=== PATIENT | male | born 1980 | race Caucasian/White ===

== ENCOUNTER 2016-09-20 08:00 | Emergency (ER) | payer MEDICAID ==
[~2016-09-20] VITALS: Ht 177.8 cm; Wt 93.4 kg
[~2016-09-20 08:00] MED LIST: ALPR1TAB2
[2016-09-20 08:17] VITALS: BP 135/93
== END 2016-09-20 08:58 | disposition home or self-care (01) ==
LOC: ER 08:03
DX: J20.9 Acute bronchitis, unspecified (principal); F17.200 Nicotine dependence, unspecified, uncomplicated
CPT/HCPCS: 71020

== ENCOUNTER 2016-11-02 20:53 | Emergency (ER) | payer MEDICAID ==
[~2016-11-02] VITALS: Ht 177.8 cm; Wt 96.6 kg
[2016-11-03 02:21] VITALS: BP 120/71
== END 2016-11-03 02:34 | disposition home or self-care (01) ==
LOC: ER 20:55
DX: K40.20 Bilateral inguinal hernia, without obstruction or gangrene, not specified as recurrent (principal); N41.0 Acute prostatitis; F17.210 Nicotine dependence, cigarettes, uncomplicated
CPT/HCPCS: 74176; 76870

== ENCOUNTER 2016-11-18 01:55 | Emergency (ER) | payer MEDICAID ==
[~2016-11-18] VITALS: Ht 177.8 cm; Wt 99.8 kg
[2016-11-18 01:59] VITALS: BP 133/82
[2016-11-18 02:24] LABS: Basophils # (auto) 0 uL; Basophils % (auto) 0.4 % (0.0-2.0); Eosinophils # (auto) 0.2 uL; Eosinophils % (auto) 1.5 % (0.0-7.0); Hematocrit 46.5 % (41.0-53.0); Lymphocytes # (auto) 2.4 uL; Lymphocytes % (auto) 19.4 % (10.0-50.0); Mean Corpuscular Hgb Conc. 32.2 g/dL (32.0-36.0); Mean Corpuscular Volume 83.9 fL (80.0-100.0); Mean Platelet Volume 7.6 fL (7.4-10.4); Monocytes # (auto) 1.2 uL; Monocytes % (auto) 9.8 % (0.0-12.0); Neutrophils # (auto) 8.7 uL; Neutrophils % (auto) 68.9 % (37.0-80.0); Platelet Count (auto) 417 10^3/uL (140-450); Red Cell Distribution Width 14.6 % (11.6-16.0); White Blood Cell 12.6 10^3/uL (4.4-10.8)
[2016-11-18 02:50] LABS: BUN/Creatinine Ratio 8.6; Potassium 3.9 mmol/L (3.5-5.1)
[2016-11-18 02:51] LABS: Calcium 8.6 mg/dL (8.5-10.1)
== END 2016-11-18 04:56 | disposition left against medical advice (07) ==
LOC: ER 01:57
DX: M79.89 Other specified soft tissue disorders (principal); Z53.21 Procedure and treatment not carried out due to patient leaving prior to being seen by health care provider
CPT/HCPCS: 36415; 80048; 84550; 85025; 85379

== ENCOUNTER 2016-11-19 17:50 | Emergency (ER) | payer MEDICAID ==
[~2016-11-19] VITALS: Ht 177.8 cm; Wt 97.1 kg
[2016-11-19 19:42] LABS: Basophils # (auto) 0 uL; Basophils % (auto) 0.3 % (0.0-2.0); Eosinophils # (auto) 0.1 uL; Hematocrit 43.8 % (41.0-53.0); Hemoglobin 14.1 g/dL (13.5-17.5); Lymphocytes # (auto) 1.7 uL; Lymphocytes % (auto) 21.2 % (10.0-50.0); Mean Corpuscular Hemoglobin 27.1 pg (28.0-32.0); Mean Corpuscular Hgb Conc. 32.1 g/dL (32.0-36.0); Mean Corpuscular Volume 84.4 fL (80.0-100.0); Mean Platelet Volume 8.1 fL (7.4-10.4); Monocytes % (auto) 12.6 % (0.0-12.0); Neutrophils # (auto) 5.2 uL; Neutrophils % (auto) 64.9 % (37.0-80.0); Platelet Count (auto) 369 10^3/uL (140-450); Red Cell Distribution Width 14.8 % (11.6-16.0); White Blood Cell 8.1 10^3/uL (4.4-10.8)
[2016-11-19 19:48] LABS: INR 0.95 (0.9-1.15); Prothrombin Time 10.4 sec (9.37-12.3)
[2016-11-19 20:22] LABS: Albumin 3.4 g/dL (3.4-5.0); BUN/Creatinine Ratio 11.8; Bilirubin, Total 0.5 mg/dL (0.2-1.0); Calcium 8.3 mg/dL (8.5-10.1); Total Protein 7.7 g/dL (6.4-8.2)
[2016-11-19 21:27] VITALS: BP 140/65
== END 2016-11-19 21:50 | disposition home or self-care (01) ==
LOC: ER 17:56
DX: L03.115 Cellulitis of right lower limb (principal); F17.210 Nicotine dependence, cigarettes, uncomplicated; Z79.899 Other long term (current) drug therapy
CPT/HCPCS: 36415; 80053; 85025; 85610; 85730; 93971

== ENCOUNTER 2016-11-22 16:37 | Emergency (ER) | payer MEDICAID ==
[~2016-11-22] VITALS: Ht 177.8 cm; Wt 97.5 kg
[2016-11-22 16:50] VITALS: BP 127/93
== END 2016-11-22 17:56 | disposition home or self-care (01) ==
LOC: ER 16:40
DX: R19.7 Diarrhea, unspecified (principal); L03.115 Cellulitis of right lower limb; F17.210 Nicotine dependence, cigarettes, uncomplicated

== ENCOUNTER 2016-12-17 23:41 | Emergency (ER) | payer MEDICAID ==
[~2016-12-17] VITALS: Ht 177.8 cm; Wt 97.5 kg
[2016-12-18 01:17] LABS: Basophils # (auto) 0 uL; Basophils % (auto) 0.6 % (0.0-2.0); CONDITION Y; Eosinophils # (auto) 0.2 uL; Eosinophils % (auto) 2.2 % (0.0-7.0); Hematocrit 44.3 % (41.0-53.0); Hemoglobin 14.5 g/dL (13.5-17.5); Mean Corpuscular Hemoglobin 27.1 pg (28.0-32.0); Mean Corpuscular Hgb Conc. 32.8 g/dL (32.0-36.0); Mean Corpuscular Volume 82.7 fL (80.0-100.0); Mean Platelet Volume 7.8 fL (7.4-10.4); Monocytes # (auto) 0.8 uL; Monocytes % (auto) 10.8 % (0.0-12.0); Neutrophils # (auto) 4.3 uL; Neutrophils % (auto) 59.4 % (37.0-80.0); Platelet Count (auto) 284 10^3/uL (140-450); White Blood Cell 7.3 10^3/uL (4.4-10.8)
[2016-12-18 01:55] LABS: Albumin 3.7 g/dL (3.4-5.0); BUN/Creatinine Ratio 12.2; Calcium 8.1 mg/dL (8.5-10.1)
[2016-12-18 01:58] LABS: Bilirubin, Total 0.2 mg/dL (0.2-1.0); Total Protein 7.6 g/dL (6.4-8.2)
[2016-12-18 02:01] LABS: Urine RBC None Seen /hpf (0 - 3)
[2016-12-18 02:51] LABS: Urine Bilirubin Negative (Negative); Urine Blood Negative /uL (Negative); Urine Color Yellow (Yellow); Urine Glucose Normal (Normal); Urine Ketone Negative (Negative); Urine Mucus FEW (None Seen); Urine Nitrite Negative (Negative); Urine Urobilinogen Normal (Negative); Urine pH 5.5 (5.0-8.0)
[2016-12-18] MEDS ORDERED: AMMONIA 0.33 ML INHALANT IN ONE (04:38)
[2016-12-18 08:01] VITALS: BP 136/82
== END 2016-12-18 08:24 | disposition home or self-care (01) ==
LOC: ER 23:41
DX: N45.1 Epididymitis (principal); N43.3 Hydrocele, unspecified; M54.42 Lumbago with sciatica, left side; G89.29 Other chronic pain; F17.200 Nicotine dependence, unspecified, uncomplicated; F15.10 Other stimulant abuse, uncomplicated; Z88.6 Allergy status to analgesic agent; Z88.8 Allergy status to other drugs, medicaments and biological substances
CPT/HCPCS: 36415; 76870; 80053; 80307; 81001; 85025; 93971; A4565

== ENCOUNTER 2017-03-16 22:21 | Emergency (ER) | payer MEDICAID ==
[~2017-03-16] VITALS: Ht 177.8 cm; Wt 95.3 kg
[2017-03-17 04:00] LABS: Basophils # (auto) 0.1 uL; Basophils % (auto) 1.3 % (0.0-2.0); Eosinophils # (auto) 0.2 uL; Eosinophils % (auto) 2.4 % (0.0-7.0); Hematocrit 49.3 % (41.0-53.0); Hemoglobin 15.9 g/dL (13.5-17.5); Lymphocytes # (auto) 1.5 uL; Lymphocytes % (auto) 21.6 % (10.0-50.0); Mean Corpuscular Hemoglobin 27.3 pg (28.0-32.0); Mean Corpuscular Hgb Conc. 32.2 g/dL (32.0-36.0); Mean Corpuscular Volume 84.8 fL (80.0-100.0); Mean Platelet Volume 7.6 fL (6.9-10.8); Monocytes # (auto) 0.9 uL; Monocytes % (auto) 13.3 % (0.0-12.0); Neutrophils # (auto) 4.4 uL; Neutrophils % (auto) 61.4 % (37.0-80.0); Nucleated Red Blood Cells % 0.1 %; Platelet Count (auto) 283 10^3/uL (140-450); Red Cell Distribution Width 15.5 % (11.8-14.3); White Blood Cell 7.1 10^3/uL (4.4-10.8)
[2017-03-17 04:21] LABS: Potassium 3.9 mmol/L (3.5-5.1)
[2017-03-17 04:26] LABS: BUN/Creatinine Ratio 8.5
[2017-03-17 04:31] LABS: Bilirubin, Total 0.7 mg/dL (0.2-1.0); Total Protein 8.4 g/dL (6.4-8.2)
[2017-03-17] MEDS ORDERED: KETOROLAC TROMETH 60MG/2ML VIAL IM ONE (07:30)
[2017-03-17 07:33] VITALS: BP 104/63
== END 2017-03-17 08:28 | disposition home or self-care (01) ==
LOC: ER 22:23
DX: K40.20 Bilateral inguinal hernia, without obstruction or gangrene, not specified as recurrent (principal); Z88.6 Allergy status to analgesic agent; Z88.8 Allergy status to other drugs, medicaments and biological substances
CPT/HCPCS: 36415; 74176; 76870; 80053; 85025; 96372; 99285; J1885

== ENCOUNTER 2017-03-24 01:39 | Emergency (ER) | payer SELFPAY ==
[~2017-03-24] VITALS: Ht 177.8 cm; Wt 97.5 kg
[2017-03-24 02:01] VITALS: BP 133/84
== END 2017-03-24 02:28 | disposition home or self-care (01) ==
LOC: ER 01:44
DX: R10.30 Lower abdominal pain, unspecified (principal); N50.82 Scrotal pain; G89.4 Chronic pain syndrome; Z88.6 Allergy status to analgesic agent; Z88.8 Allergy status to other drugs, medicaments and biological substances

== ENCOUNTER 2017-05-27 16:42 | Emergency (ER) | payer MEDICAID ==
[~2017-05-27] VITALS: Ht 177.8 cm; Wt 93.0 kg
[2017-05-27 18:03] LABS: Urine Bilirubin Negative (Negative); Urine Blood 1+ /uL (Negative); Urine Color Yellow (Yellow); Urine Glucose Normal (Normal); Urine Ketone Negative (Negative); Urine Mucus FEW (None Seen); Urine Nitrite Negative (Negative); Urine RBC 13 /hpf (0 - 3); Urine Urobilinogen Normal (Negative); Urine pH 5.5 (5.0-8.0)
[2017-05-27 23:24] LABS: Basophils # (auto) 0.1 uL; Eosinophils # (auto) 0.1 uL; Eosinophils % (auto) 1.4 % (0.0-7.0); Hematocrit 46.3 % (41.0-53.0); Hemoglobin 15.1 g/dL (13.5-17.5); Lymphocytes % (auto) 28.6 % (10.0-50.0); Mean Corpuscular Hemoglobin 27.6 pg (28.0-32.0); Mean Corpuscular Hgb Conc. 32.7 g/dL (32.0-36.0); Mean Corpuscular Volume 84.3 fL (80.0-100.0); Mean Platelet Volume 7.2 fL (6.9-10.8); Monocytes # (auto) 0.8 uL; Monocytes % (auto) 11.2 % (0.0-12.0); Neutrophils # (auto) 4.1 uL; Neutrophils % (auto) 57.8 % (37.0-80.0); Nucleated Red Blood Cells % 0.1 %; Platelet Count (auto) 303 10^3/uL (140-450); Red Cell Distribution Width 14.2 % (11.8-14.3); White Blood Cell 7.2 10^3/uL (4.4-10.8)
[2017-05-27 23:41] LABS: BUN/Creatinine Ratio 9.9; Calcium 8.9 mg/dL (8.5-10.1); Potassium 3.3 mmol/L (3.5-5.1)
[2017-05-27 23:43] LABS: Bilirubin, Total 0.4 mg/dL (0.2-1.0); Total Protein 8.4 g/dL (6.4-8.2)
[2017-05-28] MEDS ORDERED: SODIUM CHLORIDE 0.9% 1,000 ML IV ONE (03:00)
[2017-05-28] MEDS ORDERED: KETOROLAC TROMETH 30 MG/ML 1ML VIAL IV ONE (03:00)
[2017-05-28 06:00] VITALS: BP 122/67
== END 2017-05-28 06:07 | disposition home or self-care (01) ==
LOC: ER 16:42
DX: K40.20 Bilateral inguinal hernia, without obstruction or gangrene, not specified as recurrent (principal); N43.3 Hydrocele, unspecified; Z88.6 Allergy status to analgesic agent; Z88.8 Allergy status to other drugs, medicaments and biological substances
CPT/HCPCS: 36415; 74176; 76870; 80053; 81001; 85025; 96361; 96374; 99285; J1885; J7030

== ENCOUNTER 2017-06-06 15:27 | Emergency (ER) | payer MEDICAID ==
[~2017-06-06] VITALS: Ht 177.8 cm; Wt 93.0 kg
[2017-06-06 16:10] VITALS: BP 136/79
[2017-06-06 16:19] LABS: Urine Bilirubin Negative (Negative); Urine Blood 2+ /uL (Negative); Urine Color Yellow (Yellow); Urine Glucose Normal (Normal); Urine Ketone Negative (Negative); Urine Mucus FEW (None Seen); Urine Nitrite Negative (Negative); Urine RBC 63 /hpf (0 - 3); Urine Urobilinogen Normal (Negative); Urine pH 5.5 (5.0-8.0)
[2017-06-06] MEDS ORDERED: KETOROLAC TROMETH 60MG/2ML VIAL IM ONE (16:30)
== END 2017-06-06 16:52 | disposition home or self-care (01) ==
LOC: ER 15:33
DX: M54.32 Sciatica, left side (principal); Z87.442 Personal history of urinary calculi; Z88.1 Allergy status to other antibiotic agents; Z88.5 Allergy status to narcotic agent; Z88.6 Allergy status to analgesic agent
CPT/HCPCS: 81001; 96372; 99283; J1885

== ENCOUNTER 2017-07-11 19:03 | Emergency (ER) | payer MEDICAID ==
[~2017-07-11] VITALS: Ht 177.8 cm; Wt 93.0 kg
[2017-07-11] MEDS ORDERED: ONDANSETRON HCL 4 MG/2 ML VIAL IV ONE (19:30)
[2017-07-11] MEDS ORDERED: SODIUM CHLORIDE 0.9% 1,000 ML IV ONE (19:30)
[2017-07-11] MEDS ORDERED: MORPHINE SULFATE 10 MG/ML INJ 1ML SDV IV ONE ×2 (19:30→21:15)
[2017-07-11 20:43] LABS: Basophils # (auto) 0.1 uL; Basophils % (auto) 0.4 % (0.0-2.0); Eosinophils # (auto) 0 uL; Eosinophils % (auto) 0.3 % (0.0-7.0); Hematocrit 46.3 % (41.0-53.0); Hemoglobin 15.3 g/dL (13.5-17.5); Lymphocytes # (auto) 1.2 uL; Lymphocytes % (auto) 7.5 % (10.0-50.0); Mean Corpuscular Hemoglobin 28.1 pg (28.0-32.0); Mean Corpuscular Volume 85.1 fL (80.0-100.0); Monocytes % (auto) 6.6 % (0.0-12.0); Neutrophils # (auto) 13.4 uL; Neutrophils % (auto) 85.2 % (37.0-80.0); Nucleated Red Blood Cells % 0.1 %; Platelet Count (auto) 356 10^3/uL (140-450); Red Blood Cells 5.44 10^6/uL (4.5-5.90); Red Cell Distribution Width 14.2 % (11.8-14.3); White Blood Cell 15.7 10^3/uL (4.4-10.8)
[2017-07-11 21:10] LABS: Albumin 4.3 g/dL (3.4-5.0); BUN/Creatinine Ratio 10.8; Bilirubin, Total 0.5 mg/dL (0.2-1.0); Calcium 9.6 mg/dL (8.5-10.1); Potassium 3.6 mmol/L (3.5-5.1); Total Protein 8.9 g/dL (6.4-8.2)
[2017-07-11 21:42] LABS: Urine Bacteria NONE SEEN /hpf (None Seen); Urine Blood 2+ /uL (Negative); Urine Mucus FEW (None Seen); Urine WBC 3 /hpf (0 - 3)
[2017-07-11] MEDS ORDERED: TAMSULOSIN HYDROCHLORIDE 0.4 MG CAP PO ONE (21:45)
[2017-07-11 22:41] VITALS: BP 141/90
== END 2017-07-12 00:37 | disposition home or self-care (01) ==
LOC: ER 19:03
DX: N20.1 Calculus of ureter (principal); F20.9 Schizophrenia, unspecified; Z87.442 Personal history of urinary calculi
CPT/HCPCS: 36415; 74176; 80053; 81001; 85025; 96361; 96374; 99285; J2270

== ENCOUNTER 2017-07-29 17:06 | Emergency (ER) | payer MEDICAID ==
[~2017-07-29] VITALS: Ht 177.8 cm; Wt 89.4 kg
[2017-07-29] MEDS ORDERED: methylPREDNISolone SOD SUCC 125 MG/2 ML VL IM ONE (21:30)
[2017-07-29] MEDS ORDERED: KETOROLAC TROMETH 60MG/2ML VIAL IM ONE (21:30)
[2017-07-29 21:39] VITALS: BP 127/85
[2017-07-29] MEDS ORDERED: ACETAMINOPHEN/CODEINE#3 (300/30mg) TAB PO ONE (22:45)
[2017-07-29] MEDS ORDERED: HYDROcodone-ACET 5/325MG TAB PO ONE (23:30)
== END 2017-07-29 23:43 | disposition home or self-care (01) ==
LOC: ER 17:06
DX: G57.11 Meralgia paresthetica, right lower limb (principal)
CPT/HCPCS: 96372; 99284; J1885; J2930

== ENCOUNTER 2018-09-10 21:40 | Emergency (ER) | payer MEDICAID ==
[~2018-09-10] VITALS: Ht 177.8 cm; Wt 90.7 kg
[2018-09-10 23:46] LABS: Basophils # (auto) 0.1 uL; Eosinophils # (auto) 0.1 uL; Eosinophils % (auto) 0.9 % (0.0-7.0); Hematocrit 48.4 % (41.0-53.0); Hemoglobin 15.7 g/dL (13.5-17.5); Lymphocytes # (auto) 1.6 uL; Lymphocytes % (auto) 18.6 % (10.0-50.0); Mean Corpuscular Hemoglobin 27.9 pg (28.0-32.0); Mean Corpuscular Hgb Conc. 32.5 g/dL (32.0-36.0); Mean Corpuscular Volume 85.8 fL (80.0-100.0); Monocytes # (auto) 0.9 uL; Monocytes % (auto) 11.2 % (0.0-12.0); Neutrophils # (auto) 5.7 uL; Neutrophils % (auto) 68.3 % (37.0-80.0); Nucleated Red Blood Cells % 0.1 %; Platelet Count (auto) 323 10^3/uL (140-450); Red Blood Cells 5.64 10^6/uL (4.5-5.90); Red Cell Distribution Width 14.6 % (11.8-14.3); White Blood Cell 8.4 10^3/uL (4.4-10.8)
[2018-09-10 23:53] LABS: Urine Bacteria NONE SEEN /hpf (None Seen); Urine Blood Negative /uL (Negative); Urine Hyaline Cast FEW /lpf (0 - 2); Urine Mucus FEW (None Seen); Urine Specific Gravity 1.035 (1.001-1.035); Urine WBC 3 /hpf (0 - 3)
[2018-09-11 00:02] LABS: Albumin 3.6 g/dL (3.4-5.0); Calcium 8.4 mg/dL (8.5-10.1); Potassium 3.6 mmol/L (3.5-5.1)
[2018-09-11 00:06] LABS: BUN/Creatinine Ratio 7.7; Bilirubin, Total 1.1 mg/dL (0.2-1.0); Total Protein 7.7 g/dL (6.4-8.2)
[2018-09-11] MEDS ORDERED: LACTULOSE 20Gm/30ML SOLN PO ONE (07:15)
[2018-09-11] MEDS ORDERED: KETOROLAC TROMETH 60MG/2ML VIAL IM ONE (07:15)
[2018-09-11 07:38] VITALS: BP 116/62
== END 2018-09-11 08:11 | disposition home or self-care (01) ==
LOC: ER 21:46
DX: N20.0 Calculus of kidney (principal); K59.00 Constipation, unspecified; K46.9 Unspecified abdominal hernia without obstruction or gangrene; F15.10 Other stimulant abuse, uncomplicated; Z88.1 Allergy status to other antibiotic agents
CPT/HCPCS: 36415; 74176; 80053; 81001; 85025; 96372; 99284; J1885

== ENCOUNTER 2018-10-20 23:32 | Emergency (ER) | payer MEDICAID ==
[~2018-10-20] VITALS: Ht 177.8 cm; Wt 93.0 kg
[2018-10-20 23:45] VITALS: BP 134/79
[2018-10-21 00:36] LABS: Basophils # (auto) 0 uL; Eosinophils # (auto) 0.1 uL; Eosinophils % (auto) 1.6 % (0.0-7.0); Hematocrit 45.3 % (41.0-53.0); Hemoglobin 14.7 g/dL (13.5-17.5); Lymphocytes % (auto) 34.5 % (10.0-50.0); Mean Corpuscular Hemoglobin 27.3 pg (28.0-32.0); Mean Corpuscular Hgb Conc. 32.6 g/dL (32.0-36.0); Mean Corpuscular Volume 83.8 fL (80.0-100.0); Monocytes # (auto) 0.8 uL; Monocytes % (auto) 13.9 % (0.0-12.0); Neutrophils # (auto) 2.9 uL; Platelet Count (auto) 344 10^3/uL (140-450); Red Blood Cells 5.41 10^6/uL (4.5-5.90); Red Cell Distribution Width 14.3 % (11.8-14.3); White Blood Cell 5.8 10^3/uL (4.4-10.8)
[2018-10-21 00:55] LABS: Albumin 3.8 g/dL (3.4-5.0); BUN/Creatinine Ratio 9.2; Calcium 8.7 mg/dL (8.5-10.1)
[2018-10-21 00:58] LABS: Bilirubin, Total 0.3 mg/dL (0.2-1.0); Total Protein 8.1 g/dL (6.4-8.2)
[2018-10-21 05:17] LABS: Urine Bacteria FEW /hpf (None Seen); Urine Blood Negative /uL (Negative); Urine Mucus FEW (None Seen); Urine Specific Gravity 1.027 (1.001-1.035); Urine WBC 1 /hpf (0 - 3)
== END 2018-10-21 08:39 | disposition left against medical advice (07) ==
LOC: ER 23:38
DX: N50.819 Testicular pain, unspecified (principal); Z53.21 Procedure and treatment not carried out due to patient leaving prior to being seen by health care provider
CPT/HCPCS: 36415; 76870; 80053; 81001; 85025

== ENCOUNTER 2018-11-02 22:53 | Emergency (ER) | payer MEDICAID ==
[~2018-11-02] VITALS: Ht 177.8 cm; Wt 93.0 kg
[2018-11-02 23:08] VITALS: BP 130/94
== END 2018-11-03 01:30 | disposition left against medical advice (07) ==
LOC: ER 22:55
DX: N50.812 Left testicular pain (principal); N50.811 Right testicular pain; Z53.21 Procedure and treatment not carried out due to patient leaving prior to being seen by health care provider
CPT/HCPCS: 76870

== ENCOUNTER 2018-11-03 15:34 | Emergency (ER) | payer MEDICAID ==
[~2018-11-03] VITALS: Ht 177.8 cm; Wt 93.0 kg
[2018-11-03 16:24] VITALS: BP 125/82
== END 2018-11-03 16:51 | disposition home or self-care (01) ==
LOC: ER 15:46
DX: Z11.1 Encounter for screening for respiratory tuberculosis (principal); F15.10 Other stimulant abuse, uncomplicated; Z87.442 Personal history of urinary calculi; Z88.1 Allergy status to other antibiotic agents
CPT/HCPCS: 71045

== ENCOUNTER 2018-12-22 13:17 | Emergency (ER) | payer MEDICAID ==
[~2018-12-22] VITALS: Ht 177.8 cm; Wt 90.7 kg
[2018-12-22 15:36] LABS: Basophils # (auto) 0 uL; Basophils % (auto) 0.8 % (0.0-2.0); Eosinophils # (auto) 0.1 uL; Eosinophils % (auto) 1.1 % (0.0-7.0); Hematocrit 49.4 % (41.0-53.0); Hemoglobin 15.8 g/dL (13.5-17.5); Lymphocytes # (auto) 1.2 uL; Lymphocytes % (auto) 20.9 % (10.0-50.0); Mean Corpuscular Hemoglobin 27.4 pg (28.0-32.0); Mean Corpuscular Volume 85.6 fL (80.0-100.0); Monocytes # (auto) 0.7 uL; Monocytes % (auto) 11.4 % (0.0-12.0); Neutrophils # (auto) 3.9 uL; Neutrophils % (auto) 65.8 % (37.0-80.0); Nucleated Red Blood Cells % 0.1 %; Platelet Count (auto) 258 10^3/uL (140-450); Red Blood Cells 5.77 10^6/uL (4.5-5.90); Red Cell Distribution Width 14.7 % (11.8-14.3); White Blood Cell 5.9 10^3/uL (4.4-10.8)
[2018-12-22 15:50] LABS: Potassium 3.9 mmol/L (3.5-5.1)
[2018-12-22 15:56] LABS: Albumin 3.8 g/dL (3.4-5.0); BUN/Creatinine Ratio 13.3; Bilirubin, Total 0.4 mg/dL (0.2-1.0); Total Protein 7.8 g/dL (6.4-8.2)
[2018-12-22 19:48] LABS: Urine WBC None Seen /hpf (0 - 3)
[2018-12-22] MEDS: KETOROLAC TROMETH 60MG/2ML VIAL IM ONE (19:59)
[2018-12-22 20:05] LABS: Urine Bacteria NONE SEEN /hpf (None Seen); Urine Blood Negative /uL (Negative); Urine Specific Gravity 1.026 (1.001-1.035); Urine Sperm PRESENT /hpf (None Seen)
[2018-12-22] MEDS: SODIUM CHLORIDE 0.9% 1,000 ML IV ONE (20:50)
[2018-12-22] MEDS: MORPHINE SULF INJ 2 MG/ML SYRINGE 1ML IV ONE (21:00)
[2018-12-22] MEDS: IOHEXOL 300 MG/ML 100ML BOTTLE IJ ONE (21:04)
[2018-12-23] MEDS: KETOROLAC TROMETH 15 mg/ml 1ML VL IV ONE (00:41)
[2018-12-23 01:00] VITALS: BP 106/60
== END 2018-12-23 01:13 | disposition home or self-care (01) ==
LOC: ER 13:26
DX: N20.0 Calculus of kidney (principal); Z88.1 Allergy status to other antibiotic agents
CPT/HCPCS: 36415; 74177; 76870; 80053; 81001; 83690; 85025; 94761; 96372; 96374; 96375; 99284; J1885; J2270; J7030; Q9967

== ENCOUNTER 2019-04-01 01:04 | Emergency (ER) | payer MEDICAID ==
[~2019-04-01] VITALS: Ht 177.8 cm; Wt 93.0 kg
[2019-04-01 01:46] LABS: Basophils # (auto) 0.1 uL; Basophils % (auto) 0.9 % (0.0-2.0); Eosinophils # (auto) 0.2 uL; Eosinophils % (auto) 2.4 % (0.0-7.0); Hematocrit 45.4 % (41.0-53.0); Hemoglobin 14.6 g/dL (13.5-17.5); Lymphocytes # (auto) 1.9 uL; Lymphocytes % (auto) 29.4 % (10.0-50.0); Mean Corpuscular Hemoglobin 28.3 pg (28.0-32.0); Mean Corpuscular Hgb Conc. 32.3 g/dL (32.0-36.0); Mean Corpuscular Volume 87.6 fL (80.0-100.0); Monocytes # (auto) 0.8 uL; Monocytes % (auto) 12.9 % (0.0-12.0); Neutrophils # (auto) 3.5 uL; Neutrophils % (auto) 54.4 % (37.0-80.0); Nucleated Red Blood Cells % 0.1 %; Platelet Count (auto) 266 10^3/uL (140-450); Red Blood Cells 5.18 10^6/uL (4.5-5.90); Red Cell Distribution Width 13.9 % (11.8-14.3); White Blood Cell 6.4 10^3/uL (4.4-10.8)
[2019-04-01 02:05] LABS: BUN/Creatinine Ratio 10.3; Calcium 8.5 mg/dL (8.5-10.1); Potassium 3.6 mmol/L (3.5-5.1)
[2019-04-01 02:08] LABS: Bilirubin, Total 0.4 mg/dL (0.2-1.0); Total Protein 7.9 g/dL (6.4-8.2)
[2019-04-01 03:16] LABS: Urine Bacteria FEW /hpf (None Seen); Urine Blood Negative /uL (Negative); Urine Mucus FEW (None Seen); Urine Specific Gravity 1.027 (1.001-1.035); Urine WBC <1 /hpf (0 - 3)
[2019-04-01 03:18] LABS: Alcohol, Urine < 3.0 mg/dL (0-5); Amphetamine Screen, Urine POSITIVE (NEGATIVE); Barbiturate Scree,Urine NEGATIVE (NEGATIVE); Benzodiazephine Screen, Urine NEGATIVE (NEGATIVE); Cannabinoid Screen, Urine NEGATIVE (NEGATIVE); Cocaine Screen, Urine NEGATIVE (NEGATIVE); Opiate Scree,Urine NEGATIVE (NEGATIVE); Phencyclidine Screen, Urine NEGATIVE (NEGATIVE)
[2019-04-01 06:30] VITALS: BP 135/88
== END 2019-04-01 07:26 | disposition home or self-care (01) ==
LOC: ER 01:07
DX: N45.1 Epididymitis (principal); N43.2 Other hydrocele; F15.10 Other stimulant abuse, uncomplicated; Z90.49 Acquired absence of other specified parts of digestive tract; Z88.8 Allergy status to other drugs, medicaments and biological substances; Z79.899 Other long term (current) drug therapy
CPT/HCPCS: 36415; 76870; 80053; 80307; 81001; 85025

== ENCOUNTER 2019-04-07 19:36 | Emergency (ER) | payer MEDICAID ==
[~2019-04-07] VITALS: Ht 177.8 cm; Wt 93.0 kg
[2019-04-07 19:54] VITALS: BP 122/80
[2019-04-07 21:30] LABS: Alanine Aminotransferase 27 U/L (16-61); Albumin 3.7 g/dL (3.4-5.0); Anion Gap 5 (5-15); Aspartate Aminotransferase 22 U/L (15-37); Basophils # (auto) 0.1 uL; Basophils % (auto) 1.1 % (0.0-2.0); Blood Urea Nitrogen 11 mg/dL (7-18); Calcium 8.1 mg/dL (8.5-10.1); Carbon Dioxide 26 mmol/L (21-32); Chloride 109 mmol/L (98-107); Eosinophils # (auto) 0.2 uL; GFR African American 109 mL/min; GFR Non-African American 90 mL/min; Glucose 98 mg/dL (74-106); Hematocrit 42.7 % (41.0-53.0); Hemoglobin 13.8 g/dL (13.5-17.5); Lymphocytes # (auto) 1.3 uL; Lymphocytes % (auto) 24.7 % (10.0-50.0); Mean Corpuscular Hemoglobin 28.5 pg (28.0-32.0); Mean Corpuscular Hgb Conc. 32.5 g/dL (32.0-36.0); Mean Corpuscular Volume 87.6 fL (80.0-100.0); Monocytes # (auto) 0.6 uL; Monocytes % (auto) 11.9 % (0.0-12.0); Neutrophils # (auto) 3.2 uL; Neutrophils % (auto) 59.3 % (37.0-80.0); Nucleated Red Blood Cells % 0.1 %; Platelet Count (auto) 251 10^3/uL (140-450); Potassium 3.9 mmol/L (3.5-5.1); Red Blood Cells 4.87 10^6/uL (4.5-5.90); Sodium 140 mmol/L (136-145); White Blood Cell 5.3 10^3/uL (4.4-10.8)
[2019-04-07 21:33] LABS: Alkaline Phosphatase 55 U/L (45-117); Bilirubin, Total 0.3 mg/dL (0.2-1.0); Total Protein 7.4 g/dL (6.4-8.2)
== END 2019-04-07 23:11 | disposition home or self-care (01) ==
LOC: ER 19:39
DX: N50.812 Left testicular pain (principal); Z87.442 Personal history of urinary calculi; Z88.8 Allergy status to other drugs, medicaments and biological substances
CPT/HCPCS: 36415; 76870; 80053; 85025

== ENCOUNTER 2021-02-07 14:08 | Emergency (ER) | payer MEDICAID ==
[~2021-02-07] VITALS: Ht 177.8 cm; Wt 87.5 kg
[2021-02-07 18:00] VITALS: BP 145/78
== END 2021-02-07 18:13 | disposition home or self-care (01) ==
LOC: ER 14:08
DX: M25.522 Pain in left elbow (principal); M10.9 Gout, unspecified; I10 Essential (primary) hypertension; F15.10 Other stimulant abuse, uncomplicated; Z87.442 Personal history of urinary calculi
CPT/HCPCS: 93971

== ENCOUNTER 2023-08-08 01:43 | Emergency (ER) | payer MEDICAID ==
[~2023-08-08] VITALS: Ht 177.8 cm; Wt 100.0 kg
[2023-08-08 02:47] LABS: Basophils # (auto) 0.1 10 ^3/uL (0-0.2); Basophils % (auto) 0.8 % (0.0-2.0); Eosinophils # (auto) 0.3 10 ^3/uL (0-0.8); Eosinophils % (auto) 3.6 % (0.0-7.0); Hematocrit 45.4 % (41.0-53.0); Hemoglobin 14.5 g/dL (13.5-17.5); Lymphocytes # (auto) 1.9 10 ^3/uL (0.4-5.4); Lymphocytes % (auto) 24.6 % (10.0-50.0); Mean Corpuscular Hemoglobin 27.8 pg (28.0-32.0); Mean Corpuscular Volume 86.9 fL (80.0-100.0); Monocytes # (auto) 0.8 10 ^3/uL (0-1.3); Monocytes % (auto) 10.7 % (0.0-12.0); Neutrophils # (auto) 4.7 10 ^3/uL (1.6-8.6); Neutrophils % (auto) 60.3 % (37.0-80.0); Red Blood Cells 5.22 10^6/uL (4.5-5.90); Red Cell Distribution Width 14.7 % (11.8-14.3); White Blood Cell 7.8 10^3/uL (4.4-10.8)
[2023-08-08 03:12] LABS: INR 0.96 (0.9-1.15); Partial Thromboplastin Time 27.8 SEC (24.5-34.5); Prothrombin Time 10.1 sec (9.3-11.8)
[2023-08-08 03:13] LABS: Anion Gap 10 (5-15); Carbon Dioxide 21 mmol/L (20-30); Chloride 109 mmol/L (98-107); Potassium 3.5 mmol/L (3.5-5.1); Sodium 140 mmol/L (136-145)
[2023-08-08 03:14] LABS: Calcium 8.5 mg/dL (8.7-10.4)
[2023-08-08 03:19] LABS: BUN/Creatinine Ratio 11.3 (10.0-20.0); Blood Urea Nitrogen 12 mg/dL (9-23); Glucose 96 mg/dL (74-106)
[2023-08-08] MEDS: HYDROcodone-ACET 5/325MG TAB PO ONE (04:47)
[2023-08-08 04:50] VITALS: BP 137/88; RESP 17; TEMP 97.7; O2SAT 100
[2023-08-08 05:09] VITALS: PULSE 76
[2023-08-08] MEDS ORDERED: IBUP-1455 PO (05:10)
[2023-08-08] MEDS ORDERED: ACET-1304 PO (05:10)
== END 2023-08-08 05:30 | disposition home or self-care (01) ==
LOC: ER 01:43
DX: S20.212A Contusion of left front wall of thorax, initial encounter (principal); S30.1XXA Contusion of abdominal wall, initial encounter; I10 Essential (primary) hypertension; F41.9 Anxiety disorder, unspecified; F15.90 Other stimulant use, unspecified, uncomplicated; Z87.442 Personal history of urinary calculi; Z98.890 Other specified postprocedural states; Z87.891 Personal history of nicotine dependence; Z88.8 Allergy status to other drugs, medicaments and biological substances; Z79.899 Other long term (current) drug therapy; W18.39XA Other fall on same level, initial encounter; Y93.89 Activity, other specified; Y92.89 Other specified places as the place of occurrence of the external cause; Y99.8 Other external cause status
CPT/HCPCS: 36415; 71250; 74176; 80048; 83880; 84484; 85025; 85610; 85730; 93005

== ENCOUNTER 2023-11-02 04:52 | Emergency (ER) | payer MEDICAID ==
[~2023-11-02] VITALS: Ht 172.7 cm; Wt 95.0 kg
[~2023-11-02 04:52] MED LIST changes: +ACET-1304 PO; +IBUP-1455 PO
[2023-11-02 05:21] VITALS: BP 137/89; PULSE 82; RESP 18; O2SAT 96
== END 2023-11-02 06:16 | disposition left against medical advice (07) ==
LOC: ER 04:52
DX: K08.89 Other specified disorders of teeth and supporting structures (principal); Z53.21 Procedure and treatment not carried out due to patient leaving prior to being seen by health care provider

== ENCOUNTER 2025-01-23 06:22 | Emergency (ER) | payer MEDICAID ==
[~2025-01-23] VITALS: Ht 177.8 cm; Wt 97.7 kg
[2025-01-23 06:28] VITALS: BP 143/90; RESP 20; TEMP 98.2; O2SAT 95
--- NOTE | 2025-01-23 07:01 | ED.PDOC ---
HPI Comments 44 y/o M, with PMHx of HTN and anxiety presents to the ED for CC of chest pain and shortness of breath. Patient states, that he has been experiencing worsening shortness of breath x1week. Patient reports, that he is unable to ambulate more than 5ft without gasping for air. Patient endorses, experiencing new sudden onset symptoms of left sided chest pain that radiates down his left arm as of this morning (01/13/25). Patient describes, chest pain to be pressure like in nature and c/o current 11/22 pain. Patient denies palpitations, headache, nausea, or vomiting. No other symptoms or modifying factors present at this time. Chief Complaint: Chest Pain Time Seen by MD: 06:30 Primary Care Provider: STACEY Reviewed Notes: Nurses Notes, Medications, Allergies Allergies: Coded Allergies: Cephalexin (Verified Allergy, Unknown, 11/22/16) Tramadol (Verified Allergy, Unknown, 08/08/23) Home Meds Active Scripts Acetaminophen (Tylenol Extra Strength) 500 Mg Tab, 1000 MG PO Q6HP PRN, #30 TAB Prov:MAYRA VILLEGAS MD 08/08/23 Ibuprofen Micronized (Ibuprofen) 800 Mg Tab, 800 MG PO Q8HP PRN, #30 TAB Prov:MAYRA VILLEGAS MD 08/08/23 Reported Medications Alprazolam (Xanax) 1 Mg Tab 02/15/12 Information Source: Patient Mode of Arrival: Ambulatory Severity: Moderate Timing: Weeks Duration: Since onset Prehospital treatment: None Location: Chest (L) Radiation: Arm (L) Quality: Pressure Onset: At Rest Cardiac Risk Factors: HTN PE Risk Factors: None History of: None Modifying Factors: Nothing Associated Signs and Symptoms: SOB Past Medical History PAST MEDICAL HISTORY: Anxiety, HTN, Kidney Stones Surgical History: Appendectomy, Hernia Repair Family History Family History: Reviewed,noncontributory to illness Social History Smoker: Non-Smoker, Other Alcohol: Occasionally Drugs: Methamphetamine Lives In: Home Constitutional: denies: chills, diaphoresis, fatigue, fever, malaise, sweats, weakness, others EENTM: denies: blurred vision, double vision, ear bleeding, ear discharge, ear drainage, ear pain, ear ringing, eye pain, eye redness, hearing loss, mouth pain, mouth swelling, nasal discharge, nose bleeding, nose congestion, nose pain, photophobia, tearing, throat pain, throat swelling, voice changes, others Respiratory: reports: shortness of breath; denies: cough, hemoptysis, orthopnea, SOB at rest, SOB with excertion, stridor, wheezing, others Cardiovascular: reports: chest pain; denies: dizzy spells, diaphoresis, Dyspnea on exertion, edema, irregular heart beat, left arm pain, lightheadedness, palpitations, PND, syncope, others Gastrointestinal: denies: abdomen distended, abdominal pain, blood streaked bowels, constipated, diarrhea, dysphagia, difficulty swallowing, hematemesis, melena, nausea, poor appetite, poor fluid intake, rectal bleeding, rectal pain, vomiting, others Genitourinary: denies: burning, dysuria, flank pain, frequency, hematuria, incontinence, penile discharge, penile sore, pain, testicle pain, testicle swelling, urgency, others Neurological: reports: fainting; denies: dizziness, headache, left sided numbness, left sided weakness, numbness, paresthesia, pre-existing deficit, right sided numbness, right sided weakness, seizure, speech problems, tingling, tremors, weakness, others Musculoskeletal: denies: back pain, gout, joint pain, joint swelling, muscle pain, muscle stiffness, neck pain, others Integumetry: denies: bruises, change in color, change in hair/nails, dryness, laceration, lesions, lumps, rash, wounds, others Allergic/Immunocompromised: denies: Difficulty Healing, Frequent Infections, Hives, Itching, others Hematologic/Lymphatic: denies: anemia, blood clots, easy bleeding, easy bruising, swollen glands, others Endocrine: denies: excessive hunger, excessive sweating, excessive thirst, excessive urination, flushing, intolerance to cold, intolerance to heat, unexplained weight gain, unexplained weight loss, others Psychiatric: denies: anxiety, bipolar disorder, depression, hopeless, panic disorder, schizophrenia, sleepless, suicidal, others All Other Systems: Reviewed and Negative Physical Exam General Appearance: No Apparent Distress, Normal HEENT: Normal ENT Inspection, Pharynx Normal, TMs Normal Neck: Full Range of Motion, Non-Tender, Normal, Normal Inspection Respiratory: Chest Non-Tender, Lungs Clear, No Accessory Muscle Use, No Respiratory Distress, Normal Breath Sounds Cardiovascular: No Edema, No JVD, No Murmur, No Gallop, Normal Peripheral Pulses, Regular Rate/Rhythm Breast Exam: Deferred Gastrointestinal: No Organomegaly, Non Tender, No Pulsatile Mass, Normal Bowel Sounds, Soft Genitalia: Deferred Pelvic: Deferred Rectal: Deferred Extremities: No calf tenderness, Normal capillary refill, Normal inspection, Normal range of motion, Non-tender, No pedal edema Musculoskeletal : Apperance: Normal Neurologic: Alert, 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 Was a procedure done?: No CP Differential Dx Differential Diagnosis: Angina, Anxiety / Panic Attack, Pulmonary Embolus Differential Diagnosis: HTN Essential, HTN Accelerated Differential Diagnosis: Chest Wall Pain, Costochondritis X-Ray, Labs, Meds, VS Vital Signs Date Time Temp Pulse Resp B/P (MAP) Pulse Ox O2 Delivery O2 Flow Rate FiO2 01/23/25 07:43 76 01/23/25 06:28 98.2 99 20 143/90 95 98.2 01/23/25 06:26 110 Lab Test 01/23/25 07:39 01/23/25 06:39 Range/Units Troponin I High Sensitivity 4 4 </=54 ng/L White Blood Count 7.5 4.4-10.8 10^3/uL Red Blood Count 5.47 4.5-5.90 10^6/uL Hemoglobin 15.7 13.5-17.5 g/dL Hematocrit 47.4 41.0-53.0 % Mean Corpuscular Volume 86.7 80.0-100.0 fL Mean Corpuscular Hemoglobin 28.7 28.0-32.0 pg Mean Corpuscular Hemoglobin Concent 33.1 32.0-36.0 g/dL Red Cell Distribution Width 13.7 11.8-14.3 % Platelet Count 225 140-450 10^3/uL Mean Platelet Volume 8.0 6.9-10.8 fL Neutrophils (%) (Auto) 61.2 37.0-80.0 % Lymphocytes (%) (Auto) 28.7 10.0-50.0 % Monocytes (%) (Auto) 8.9 0.0-12.0 % Eosinophils (%) (Auto) 0.8 0.0-7.0 % Basophils (%) (Auto) 0.4 0.0-2.0 % Neutrophils # (Auto) 4.6 1.6-8.6 10 ^3/uL Lymphocytes # (Auto) 2.2 0.4-5.4 10 ^3/uL Monocytes # (Auto) 0.7 0-1.3 10 ^3/uL Eosinophils # (Auto) 0.1 0-0.8 10 ^3/uL Basophils # (Auto) 0 0-0.2 10 ^3/uL Nucleated Red Blood Cells 0.0 % Sodium Level 143 136-145 mmol/L Potassium Level 3.7 3.5-5.1 mmol/L Chloride Level 109 H 98-107 mmol/L Carbon Dioxide Level 23 20-31 mmol/L Anion Gap 11 5-15 Blood Urea Nitrogen 10 9-23 mg/dL Creatinine 1.21 0.700-1.30 mg/dL Glomerular Filtration Rate Calc 77 >90 mL/min BUN/Creatinine Ratio 8.3 L 10.0-20.0 Serum Glucose 137 H 74-106 mg/dL Calcium Level 9.2 8.7-10.4 mg/dL Time of 1ST Reevaluation: 07:00 Reevaluation 1ST: Unchanged Patient Education/Counseling: Diagnosis, Treatment Family Education/Counseling: No Family Present SEPSIS Sepsis Screen Date sepsis recognized/suspect: Jan 23, 2025 Time Sepsis recognized/suspect: 0649 Recent Procedure: No On Antibiotic Therapy: No Respiratory Rate >20: No Heart Rate >90: No Temp<36 C (96.8 F) or >38.3 C: No SBP <90 or MAP <65 mmHG: No New Acute Mental Status Change: No Is the patient on CPAP, BIPAP,: No Physician Orders Electrocardigram (01/23/25 07:30) Electrocardigram (01/23/25 09:30) Troponin-I Hs (01/23/25 09:38) Vital Signs Date Time Temp Pulse Resp B/P (MAP) Pulse Ox O2 Delivery O2 Flow Rate FiO2 01/23/25 07:43 76 01/23/25 06:28 98.2 99 20 143/90 95 98.2 01/23/25 06:26 110 Laboratory Tests Test 01/23/25 06:39 White Blood Count 7.5 10^3/uL (4.4-10.8) Departure 1 Departure Time of Disposition: 11:12 (Patient presented with chest pain and shortness of breath) Impression: Primary Impression: Acute chest pain Disposition: 07 LEFT AWOL/ELOPED Condition: Serious Critical Care Note Critical Care Time?: Yes Critical care comment: Acute Chest Pain Authorized and Performed by: Lisa Avitia MD Total critical care time: Approximately 37 minutes Due to a high probability of clinically significant, life threatening deterioration, the patient required my highest level of preparedness to intervene emergently and I personally spent this critical care time directly and personally managing the patient. This critical care time included obtaining a history; examining the patient; pulse oximetry; ordering and review of studies; arranging urgent treatment with development of a management plan; evaluation of patient's response to treatment; frequent reassessment; and, discussions with other providers. This critical care time was performed to assess and manage the high probability of imminent, life-threatening deterioration that could result in multi-organ failure. It was exclusive of separately billable procedures and treating other patients and teaching time. Please see my other sections and the rest of the note for further information on patient assessment and treatment. Stability Stability form required: No Heart Score Heart Score: Heart Score Response (Comments) Value History N/A 0 EKG N/A 0 Age <45 0 Risk Factors 1 or 2 risk factors 1 Troponin N/A 0 Total 1 I personally scribed for LISA AVITIA MD ([email or web address]) on 01/23/25 at 07:01. Electronically submitted by Rafia Davila ([email or web address]). LISA AVITIA MD Jan 23, 2025 07:01
[2025-01-23 07:08] LABS: Hematocrit 47.4 % (41.0-53.0); Hemoglobin 15.7 g/dL (13.5-17.5); Mean Corpuscular Hemoglobin 28.7 pg (28.0-32.0); Mean Corpuscular Volume 86.7 fL (80.0-100.0); Nucleated Red Blood Cells % 0.0 %
[2025-01-23 07:13] LABS: Potassium 3.7 mmol/L (3.5-5.1); Sodium 143 mmol/L (136-145)
[2025-01-23 07:14] LABS: Anion Gap 11 (5-15); Calcium 9.2 mg/dL (8.7-10.4); Carbon Dioxide 23 mmol/L (20-31)
[2025-01-23 07:19] LABS: BUN/Creatinine Ratio 8.3 (10.0-20.0); Blood Urea Nitrogen 10 mg/dL (9-23); Chloride 109 mmol/L (98-107); Glucose 137 mg/dL (74-106)
[2025-01-23 07:43] VITALS: PULSE 76
--- NOTE | 2025-01-23 08:01 | ECG ---
[facility] Test Date: 2025-01-23 Test Time: 06:26:22 Pat Name: MICHELE PEREZ Department: [facility] ED Patient ID: [id number] Room: Gender: M Rn Corrections: TORRES : 1980 Requested By: EMERGENCY EMERGENCY Order Number: [id number] Reading MD: Robert Nava Measurements Intervals [place] Rate: 110 P: 71 AL: 182 QRS: 72 QRSD: 90 T: 47 QT: 338 QTc: 458 Interpretive Statements Sinus tachycardia Right atrial enlargement Electronically Signed On 01-23-2025 18:26:22 PDT by Robert Nava Please click the below link to view image of tracing.
--- NOTE | 2025-01-23 14:19 | ECG ---
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
== END 2025-01-23 10:52 | disposition left against medical advice (07) ==
LOC: ER 06:22
DX: R07.89 Other chest pain (principal); R06.02 Shortness of breath; I10 Essential (primary) hypertension; F41.9 Anxiety disorder, unspecified; Z90.49 Acquired absence of other specified parts of digestive tract; Z98.890 Other specified postprocedural states; Z88.1 Allergy status to other antibiotic agents; Z88.5 Allergy status to narcotic agent
CPT/HCPCS: 36415; 80048; 84484; 85025; 93005